=== PATIENT | female | born 1980 | race Hispanic/Latino ===

== ENCOUNTER 2021-12-31 21:50 | Emergency (ER) | payer MEDICAID ==
[2021-12-31 22:01] VITALS: BP 110/71
--- NOTE | 2022-01-01 01:01 | Emergency Department Report ---
ED Allergic Reaction HPI - General Chief complaint: Allergic Reaction Stated complaint: ALLERGIC REACTION Time Seen by Provider: 01/01/22 00:04 Source: patient Mode of arrival: Ambulatory Limitations: No Limitations - History of Present Illness Initial Comments: 41-year-old female presents emerged from complaining reaction to ants possible insect bite to the face 2 to 3 days ago. Upon waking up he noticed his face was red and swollen but is continued to Throughout the bee stings to the present emergency department seeking further treatment options. Reports no hemoptysis no hematemesis medic easy, no odynophagia or or dysphagia no chest pain or shortness of breath. MD Complaint: allergic reaction, facial swelling Symptoms: itching, facial swelling Severity: mild - Related Data Allergies Allergy/AdvReac Type Severity Reaction Status Date / Time No Known Allergies Allergy Verified 12/31/21 22:02 ED Review of Systems ROS: Stated complaint: ALLERGIC REACTION Other details as noted in HPI Comment: All other systems reviewed and negative ED Past Medical Hx - Past Medical History Previous Medical History?: Yes Hx Seizures: Yes - Surgical History Past Surgical History?: No - Social History Smoking Status: Never Smoker Substance Use Type: None ED Physical Exam - General Limitations: No Limitations General appearance: alert, in no apparent distress - Head Head exam: Present: atraumatic, normocephalic - Expanded Head Exam Expanded 1 - Swelling and redness to this region of the face. Airway patent tongue uvula midline no stridor normal voice no drooling - Eye Eye exam: Present: normal appearance, PERRL, EOMI Pupils: Present: normal accommodation - ENT ENT exam: Present: mucous membranes moist - Neck Neck exam: Present: normal inspection, full ROM. Absent: meningismus, lymphadenopathy, thyromegaly - Respiratory Respiratory exam: Present: normal lung sounds bilaterally. Absent: respiratory distress - Cardiovascular Cardiovascular Exam: Present: regular rate, normal rhythm. Absent: systolic murmur, diastolic murmur, rubs, gallop - GI/Abdominal GI/Abdominal exam: Present: soft, normal bowel sounds - Extremities Exam Extremities exam: Present: normal inspection - Back Exam Back exam: Present: normal inspection - Neurological Exam Neurological exam: Present: alert, oriented X3 - Psychiatric Psychiatric exam: Present: normal affect, normal mood - Skin Skin exam: Present: warm, dry, intact, normal color. Absent: rash ED Course Vital Signs 12/31/21 21:58 Temperature 98.8 F Pulse Rate 107 H Respiratory 18 Rate Blood Pressure 110/71 [Right] O2 Sat by Pulse 97 Oximetry Critical care attestation.: If time is entered above; I have spent that time in minutes in the direct care of this critically ill patient, excluding procedure time. ED Disposition Clinical Impression: Insect bite Disposition: HOME / SELF CARE / HOMELESS Is pt being admited?: No Does the pt Need Aspirin: No Condition: Stable Instructions: Bee, Wasp, or Hornet Sting, Adult
== END 2022-01-01 01:05 | disposition left against medical advice (07) ==
LOC: ED 21:50
DX: T14.8XXA Other injury of unspecified body region, initial encounter (principal); W57.XXXA Bitten or stung by nonvenomous insect and other nonvenomous arthropods, initial encounter; Y93.89 Activity, other specified; Y92.89 Other specified places as the place of occurrence of the external cause; Y99.8 Other external cause status
CPT/HCPCS: 99281